=== PATIENT | male | born 1965 ===

== ENCOUNTER 2019-03-06 16:02 | Emergency (ER) | payer OTHER ==
--- NOTE | 2019-03-06 17:26 | ED PDOC ---
HPI:Nausea, Vomiting, Diarrhea Time Seen by Provider: 03/06/19 16:46 Chief Complaint (Nursing): GI Problem Chief Complaint (Provider): Vomiting, Diarrhea History Per: Patient History/Exam Limitations: no limitations Onset/Duration Of Symptoms: Intermittent Episodes (x4 days) Current Symptoms Are (Timing): Intermittent Episodes Additional Complaint(s): 53 year old male presents to the ED for evaluation of intermittent episodes of non-bilious, non-bloody vomiting and watery, non-bloody diarrhea for the past four days. Patient notes right before onset, he ate [place] food, and symptoms have been continuing daily with a slight subjective fever yesterday. Today, patient notes he was able to tolerate liquids, but has not had any solid foods. Otherwise, denies abdominal pain, recent travel, and recent antibiotic use. PMD: none provided Past Medical History Reviewed: Historical Data, Nursing Documentation, Vital Signs Vital Signs: Last Vital Signs Temp 99.5 F 03/06/19 16:24 Pulse 115 H 03/06/19 16:24 Resp 16 03/06/19 16:24 BP 159/97 H 03/06/19 16:24 Pulse Ox 96 03/06/19 16:24 Primary Care Provider: FAMILY PROVIDER,NO - Medical History PMH: HTN - Surgical History Surgical History: Tonsillectomy - Family History Family History: States: Unknown Family Hx - Social History Current smoker - smoking cessation education provided: No Alcohol: Social Drugs: Denies - Immunization History Hx Tetanus Toxoid Vaccination: No - Home Medications Home Medications: Ambulatory Orders Medication Instructions Recorded Polyethylene Glycol/Polyvinyl 1 appl OD Q2 #1 bottle 09/09/15 [Artificial Tears] Prednisone 10 mg PO TID #15 tab 09/09/15 Valacyclovir Hydrochloride 1 gm PO TID #30 tab 09/09/15 [Valtrex] Ondansetron ODT [Zofran ODT] 4 mg PO Q8 PRN #12 odt 03/06/19 - Allergies Allergies/Adverse Reactions: Allergies Allergy/AdvReac Type Severity Reaction Status Date / Time No Known Allergies Allergy Verified 09/09/15 07:50 Review of Systems ROS Statement: Except As Marked, All Systems Reviewed And Found Negative Constitutional: Positive for: Fever Gastrointestinal: Positive for: Vomiting (non-bilious, non-bloody), Diarrhea (watery, non-bloody). Negative for: Abdominal Pain Physical Exam - Reviewed Nursing Documentation Reviewed: Yes Vital Signs Reviewed: Yes - Physical Exam Appears: Positive for: No Acute Distress (comfortable) Head Exam: Positive for: ATRAUMATIC, NORMAL INSPECTION, NORMOCEPHALIC Skin: Positive for: Normal Color, Warm Eye Exam: Positive for: Normal appearance, EOMI, PERRL ENT: Positive for: Normal ENT Inspection Neck: Positive for: Normal, Painless ROM, Supple Cardiovascular/Chest: Positive for: Regular Rate, Rhythm Respiratory: Positive for: Normal Breath Sounds. Negative for: Respiratory Distress Gastrointestinal/Abdominal: Positive for: Soft, Distended. Negative for: Tenderness Extremity: Positive for: Normal ROM (all extremities) Neurological/Psych: Positive for: Awake, Alert, Oriented (x3). Negative for: Motor/Sensory Deficits - Laboratory Results Result Diagrams: 03/06/19 18:40 03/06/19 18:40 - ECG O2 Sat by Pulse Oximetry: 96 (RA) Pulse Ox Interpretation: Normal Medical Decision Making Medical Decision Making: Time: 1701 Initial Impression: vomiting and diarrhea DDx includes acute gastroenteritis (bacterial or viral), cholelithiasis, and other forms of infectious diarrhea Initial Plan: --CMP --Lipase --CBC with differential --Bentyl 10mg PO --Zofran 4mg IVP --Reevaluation ---- Scribe Attestation: Documented by Tammy Guy, acting as a scribe for Paulo Marsh MD. Provider Scribe Attestation: All medical record entries made by the Scribe were at my direction and personally dictated by me. I have reviewed the chart and agree that the record accurately reflects my personal performance of the history, physical exam, medical decision making, and the department course for this patient. I have also personally directed, reviewed, and agree with the discharge instructions and disposition. Disposition - Clinical Impression Clinical Impression: Gastroenteritis - Patient ED Disposition Is Patient to be Admitted: Transfer of Care Counseled Patient/Family Regarding: Studies Performed, Diagnosis - Disposition Referrals: [facility] [Outside] Disposition: Transfer of Care Disposition Time: 19:00 Condition: STABLE Prescriptions: Ondansetron ODT [Zofran ODT] 4 mg PO Q8 PRN #12 odt PRN Reason: Nausea/Vomiting Instructions: Viral Gastroenteritis Forms: [employer] (Filipino), [facility] ED School/Work Excuse Print Language: BOTSWANAN Patient Signed Over To: Kumar Connor
[2019-03-06] MEDS ORDERED: Sodium Chloride 0.9% 1,000 ML IV STA (19:03)
[2019-03-06 19:12] LABS: BASO % 0.6 % (0.0-2.0); EOS % 0.1 % (0.0-4.0); HEMOGLOBIN 14.5 g/dL (12.0-18.0); LYMPH # 1.2 K/uL (1.0-4.3); LYMPH % 16.6 % (20.0-40.0); MEAN CELL VOLUME 93.2 fl (80.0-94.0); MEAN CORPUSCULAR HEMOGLOBIN 31.7 pg (27.0-31.0); MEAN CORPUSCULAR HGB CONC 34.1 g/dL (33.0-37.0); MEAN PLATELET VOLUME 9.7 fl (7.2-11.7); MONO # 1.4 K/uL (0.0-0.8); MONO % 20.5 % (0.0-10.0); NEUT # 4.4 K/uL (1.8-7.0); NEUT % 62.2 % (50.0-75.0); NRBC % 0.4 % (0.0-0.0); PLATELET COUNT 73 K/uL (130-400); RBC 4.56 Mil/uL (4.40-5.90); RED CELL DISTRIBUTION WIDTH 15.2 % (11.5-14.5); WHITE BLOOD COUNT 7.1 K/uL (4.8-10.8)
[2019-03-06 19:14] LABS: ALB/GLOB RATIO 0.8 (1.0-2.1)
--- NOTE | 2019-03-06 19:21 | ED PDOC ---
- Laboratory Results Result Diagrams: 03/06/19 18:40 03/06/19 18:40 Lab Results: Albumin/Globulin Ratio 0.8 (1.0-2.1) L 03/06/19 18:40 - ECG O2 Sat by Pulse Oximetry: 95 Medical Decision Making Medical Decision Makin Patient care endorsed from Dr. Marsh to this provider pending labs and reevaluation. 2100 Patient re-evaluated at bedside, states he's feeling much improved Advised plenty of fluids, rest, and bland diet Very well appearing upon discharge Scribe Attestation: Documented by Tammy Guy, acting as a scribe for Kumar Connor MD. Provider Scribe Attestation: All medical record entries made by the Scribe were at my direction and personally dictated by me. I have reviewed the chart and agree that the record accurately reflects my personal performance of the history, physical exam, medical decision making, and the department course for this patient. I have also personally directed, reviewed, and agree with the discharge instructions and disposition. Disposition - Clinical Impression Clinical Impression: Gastroenteritis - POA Present On Arrival: None - Disposition Referrals: [facility] [Outside] Disposition: Routine/Home Disposition Time: 21:00 Condition: IMPROVED Prescriptions: Ondansetron ODT [Zofran ODT] 4 mg PO Q8 PRN #12 odt PRN Reason: Nausea/Vomiting Instructions: Viral Gastroenteritis Forms: Karon Ramirez ([place]er), [facility] ED School/Work Excuse Print Language: TRISTANIAN
[2019-03-06 20:06] LABS: ALBUMIN 3.7 g/dL (3.5-5.0); ALT/SGPT 37 U/L (21-72); AST/SGOT 109 U/L (17-59); BLOOD UREA NITROGEN 4 mg/dl (9-20); CALCIUM 8.3 mg/dL (8.4-10.2); GFR NON-AFRICAN AMERICAN > 60; LIPASE 33 U/L (23-300)
[2019-03-06 20:36] LABS: BANDS 3 % (0-2); LYMPHOCYTE 23 % (20-50); MONOCYTE 13 % (0-10); NEUTROPHIL 61 % (42-75); PLATELET ESTIMATE DECREASED (NORMAL); TOTAL CELLS COUNTED 100
[2019-03-06 20:42] LABS: HYPOCHROMIC SLIGHT; SMUDGE CELLS PRESENT
[2019-03-06 21:14] VITALS: BP 159/71; PULSE 105; RESP 16; TEMP 99.6
[2019-03-07 08:45] VITALS: O2SAT 96
== END 2019-03-06 21:05 | disposition home or self-care (01) ==
LOC: H.ER 16:02
DX: K52.9 Noninfective gastroenteritis and colitis, unspecified (principal); I10 Essential (primary) hypertension
CPT/HCPCS: 80053; 83690; 85025; 96361; 96374; 99284; J2405; J7030